=== PATIENT | male | born 1955 | race Caucasian/White ===

== ENCOUNTER 2020-06-26 08:22 | Outpatient (RCR) | payer BC, SELFPAY ==
[2015-04-13 10:24] VITALS: BMI 33.9
[2020-06-26] MEDS: COVID-19 VACC, MRNA(PFIZER)/PF 30 MCG/0.3 ML SYRINGE IM (11:48)
[2020-07-17] MEDS: COVID-19 VACC, MRNA(PFIZER)/PF 30 MCG/0.3 ML SYRINGE IM (11:38)
== END 2020-06-26 23:59 ==
LOC: IMMUN 08:22
PROVIDERS: PCP Internal Medicine; Referring Provider Family Medicine; Visit Provider Family Medicine
DX: Z23 Encounter for immunization (principal)
CPT/HCPCS: 0001A; 0002A; 91300